=== PATIENT | female | born 1985 | race Caucasian/White ===

== ENCOUNTER 2016-11-29 17:47 | Inpatient (IN) | payer OTHER ==
[2016-11-29] MEDS ORDERED: Dinoprostone* 10 MG VAG.SUPP VAGINAL ONE (19:49)
[2016-11-30 06:46] LABS: Hematocrit 40 % (35-47); Mean Corpuscular HGB Conc 35 g/dl (31-36); Mean Corpuscular Hemoglobin 31 pg (27-31); Mean Corpuscular Volume 90 fL (80-97); Mean Platelet Volume 8 um3 (7.4-10.4); Red Blood Count 4.46 10^6/ul (4.0-5.4); Red Cell Distribution Width 13 % (10.5-15); White Blood Count 9.4 10^3/ul (3.5-10.8)
[2016-11-30] MEDS ORDERED: Oxytocin in LR* 20 UNITS/1,000 ML BAG IVPB SCH (10:00)
[2016-11-30] MEDS ORDERED: fentaNYL* 50 MCG/ML 2 ML VIAL (100 MCG VIAL) ONE ×3 (17:14→19:23)
[2016-11-30] MEDS ORDERED: OBEPIDURAL* 250 ML ONE (17:14)
[2016-11-30] MEDS ORDERED: HYDROmorphone* 1 MG/ML 1 ML SYR ONE ×2 (17:14→19:23)
[2016-11-30] MEDS ORDERED: Phenylephrine IV* 40 MCG/ML 10 ML SYRINGE IV PUSH PRN ×2 (18:29)
[2016-11-30] MEDS ORDERED: EPHEDrine (Pressors)* 50 MG/ML VIAL IV PUSH PRN ×2 (18:29)
[2016-11-30] MEDS ORDERED: Famotidine TAB* 20 MG PO PRN (18:29)
[2016-11-30] MEDS ORDERED: Sodium Citrate/Citric Acid* 15 ML UDC PO PRN (18:29)
[2016-11-30] MEDS ORDERED: OBEPIDURAL* 250 ML EPIDURAL SCH (19:00)
[2016-12-01] MEDS ORDERED: Dibucaine 1% 28.35 GM TUBE ONE (10:44)
[2016-12-01] MEDS ORDERED: Docusate CAP* 100 MG ONE (10:44)
[2016-12-01] MEDS ORDERED: Ibuprofen TAB* 600 MG ONE (10:44)
[2016-12-01] MEDS ORDERED: Witch Hazel PAD* JAR ONE ×2 (10:48→10:49)
[2016-12-01] MEDS ORDERED: Witch Hazel PAD* JAR TOPICAL PRN (10:58)
[2016-12-01] MEDS ORDERED: Acetaminophen TAB* 325 MG PO PRN (10:58)
[2016-12-01] MEDS ORDERED: Glycerin ADULT SUPP PR PRN (10:58)
[2016-12-01] MEDS ORDERED: Dibucaine 1% 28.35 GM TUBE PR PRN (10:58)
[2016-12-01] MEDS ORDERED: Simethicone CHEW TAB* 80 MG PO SCH (12:30)
[2016-12-01] MEDS: Docusate CAP* 100 MG PO SCH ×2 (14:59→21:22)
[2016-12-01] MEDS: Ibuprofen TAB* 600 MG PO PRN (18:34)
[2016-12-02] MEDS: Ibuprofen TAB* 600 MG PO PRN ×4 (00:34→20:09)
[2016-12-02 08:17] LABS: Hematocrit 30 % (35-47); Hemoglobin 10.1 g/dl (12.0-16.0); Mean Corpuscular HGB Conc 34 g/dl (31-36); Mean Corpuscular Hemoglobin 31 pg (27-31); Mean Corpuscular Volume 93 fL (80-97); Mean Platelet Volume 8 um3 (7.4-10.4); Red Blood Count 3.26 10^6/ul (4.0-5.4); Red Cell Distribution Width 13 % (10.5-15); White Blood Count 14.8 10^3/ul (3.5-10.8)
[2016-12-02] MEDS ORDERED: Ferrous Gluconate TAB* 324 MG TAB PO SCH (09:00)
[2016-12-02] MEDS: Docusate CAP* 100 MG PO SCH ×3 (09:57→20:09)
--- NOTE | 2016-12-02 10:37 | PTEDU ---
Patient Name: RACHANA HAAS RACHANA HAAS selected video: Never Ever Shake a Baby to view on 12/02/2016 at 10:36:10 AM from [id number]
--- NOTE | 2016-12-02 10:49 | PTEDU ---
Patient Name: RACHANA HAAS RACHANA HAAS selected video: Follow Me Mum: [facility] to view on 2016 at 10:47:[address] [id number]
[2016-12-03] MEDS: Ibuprofen TAB* 600 MG PO PRN ×2 (08:33→15:09)
[2016-12-03] MEDS: Docusate CAP* 100 MG PO SCH ×2 (08:33→15:09)
[2016-12-03 09:22] VITALS: BP 113/64
== END 2016-12-03 16:42 | disposition home or self-care (01) | DRG 775 ==
LOC: MCHOBOUT 17:47 → MCHOB 19:52
PROVIDERS: ADMIT Obstetrics & Gynecology; ATTEND Obstetrics & Gynecology
PROC: 10D07Z6 Extraction of Products of Conception, Vacuum, Via Natural or Artificial Opening (ICD-10-PCS; principal; 2016-12-01)
PROC: 0DQR0ZZ Repair Anal Sphincter, Open Approach (ICD-10-PCS; 2016-12-01)
PROC: 3E033VJ Introduction of Other Hormone into Peripheral Vein, Percutaneous Approach (ICD-10-PCS; 2016-12-01)
DX: O48.0 Post-term pregnancy (principal); E66.9 Obesity, unspecified; O70.20 Third degree perineal laceration during delivery, unspecified; Z3A.41 41 weeks gestation of pregnancy; O99.824 Streptococcus B carrier state complicating childbirth; O99.214 Obesity complicating childbirth; Z68.38 Body mass index [BMI] 38.0-38.9, adult; Z37.0 Single live birth
CPT/HCPCS: 36415; 59200; 85025; 86850; 86900; 86901; 88307; A9270-GY; J1170; J3010

== ENCOUNTER 2019-05-23 10:38 | Inpatient (IN) | payer OTHER ==
[2019-05-23] MEDS ORDERED: Buffered Lidocaine 1% SYRIN* 1 ML/SYRINGE INTRADERM ONE (12:15)
[2019-05-23] MEDS ORDERED: Lactated Ringers 1000 ML Bag* 1,000 ML IV ONE ×2 (12:15→22:39)
[2019-05-23] MEDS ORDERED: Nalbuphine* 10 MG/ML 1 ML VIAL IV ONE (12:15)
[2019-05-23] MEDS ORDERED: Promethazine INJ(RESTRICTED)* 25 MG/ML 1 ML VIAL IV ONE (12:15)
--- NOTE | 2019-05-23 12:30 | HP ---
General Information - Reason for Visit PROM at 38w2d at 0330 hours, clear fluid - General Information Maternal Age: 33 Grav: 2 Para: 1 SAB: 0 IEA: 0 Estimated Due Date: 06/04/19 Determined By: LMP Gestational Age in Weeks/Days: 38w2d Maternal Blood Type and Rh: A Positive - Results this Serology/RPR Result: Non-Reactive Rubella Result: Immune HBsAg Result: Negative HIV Result: Negative GBS Culture Result: Negative Past Medical History Delivery History: Hx Complicated Vaginal Delivery - Vacuum assisted, 3rd degree lacerations, 9#1oz baby Pertinent Past Medical History: See Records Pertinent Past Surgical History: See Records Pertinent Family History: Non-Contributory - Antepartal Records Antepartal Records: Reviewed, Complicated by: - morbid obesity, AMA Review of Systems Constitutional: Comfortable CV Complaint: No Respiratory: Shortness of Breath: No Gastrointestinal: No Nausea/Vomiting, Normal Bowel Movement Genitourinary: Leaking Fluid, No Dysuria, No Bleeding Musculoskeletal: No Complaint, No Epigastric Pain Neurological: No Headache, No Visual Changes Movement: Normal Exam Allergies/Adverse Reactions: Allergies lakshmi Allergy (Verified 05/23/19 11:20) Tingling Temp 97.6 Pulse 93 BP 112/72 RR 20 O2 Sat 99% Lab Values - Entire Visit: Laboratory Tests 05/23/19 11:11 Vag Amniotic Fld Detect Positive - Measurements Height: 5 ft 6.25 in Weight: 298 lb Weight in lbs: 298.697529 Body Mass Index (BMI): 47.7 Pre- Weight: 241 lb Weight Gained This : 57 lbs and 0 ozs - Exam Breast: Breast Exam Deferred CVA: No CVA Tenderness Extremities: No Edema Heart: Normal Rhythm/Heart Sounds HEENT: No Significant Findings Lungs: Clear Bilaterally Rectal: Rectal Exam Deferred Reflexes: DTR 2+ Thyroid: No Thyromegaly Other Exam Findings: trace edema in BL LE - Abdominal Exam Abdomen Exam: Non-Tender, Fundal Height Consistent with Dates - Ultrasound/Biophysical Profile Ultrasound Status: Bedside Exam Ultrasound Findings: Vertex Targeted Exam Findings Estimated Weight: 8#12oz Presenting Part: Vertex Membrane Status: Leaking Amniotic Fluid Evaluation: Positive ROM Plus Bleeding/Discharge: None - Cervical Exam deffered, pt with PROM, will begin augmentation with Pitocin EFM Findings - External Monitor Findings Baseline Heart Rate: 135 External Monitor Findings: Accelerations Present, No Pattern of Variable or Late Decelerations, Variability Moderate, Baseline Stable External Monitor Findings Comment: FHT reactive and reassuring Contractions: Irregular Contraction Frequency: irregular Assessment/Plan - Assessment 33 y/o at 38w2d with PROM at 0330hours, clear fluid. complicated by morbid obesity, AMA, hx of vacuum delivery of 9#1oz and 3rd degree laceration RH+/Rubella Immune GBS Negative 05/10 - Obstetrical Risk Factors Obstetrical Risk Factors: Obesity - Plan Plan: Induction Plan Comment: Defer cervical exam at this time; Vertex on USN; pt has been rupture ~9 hours, not sky regularly, pt is comfortable. Will begin augmentation with Pitocin. Will examine when clinically indicated. GBS negative, no indication for Abx ppx at this time, no s/sx of infection. - Date/Time of Admission Date of Admission: 05/23/19 Time of Admission: 12:00
[2019-05-23] MEDS ORDERED: Oxytocin in LR* 20 UNITS/1,000 ML BAG IVPB SCH (13:00)
[2019-05-23] MEDS ORDERED: Lactated Ringers 1000 ML Bag* 1,000 ML IV SCH ×2 (13:00→23:00)
[2019-05-23 13:05] LABS: ABS Eosinophils 0.1 10^3/ul (0-0.6); ABS Lymphocytes 1.7 10^3/ul (1.0-4.8); ABS Monocytes 0.6 10^3/ul (0-0.8); ABS Neutrophils 8.5 10^3/ul (1.5-7.7); Eosinophil % 0.5 %; Hematocrit 39 % (35-47); Hemoglobin 13.6 g/dL (12.0-16.0); Lymphocyte % 15.7 %; Mean Corpuscular HGB Conc 35 g/dL (31-36); Mean Corpuscular Hemoglobin 31 pg (27-31); Mean Corpuscular Volume 88 fL (80-97); Mean Platelet Volume 7.8 fL (7.4-10.4); Platelet Count 233 10^3/uL (150-450); Red Blood Count 4.45 10^6 /uL (3.70-4.87); Red Cell Distribution Width 14 % (10-15); White Blood Count 10.9 10^3/uL (3.5-10.8)
[2019-05-23 15:59] LABS: Urine Benzodiazepine Screen None Detected (None Detect); Urine Opiates Screen None Detected (None Detect)
--- NOTE | 2019-05-23 20:50 | PN ---
Progress Note - Progress Note Date of Service: 05/23/19 Note: 33 y/o at 38w2d here with PROM at 0330. IOL with Pitocin. AVSS, afebrile, hemodynamically stable. AAOX3 RRR, CTABL Abdomen soft, nttp FHT is 135bpm/moderate/+accels/no decels [place] is irregular Becoming more uncomfortable with contractions. Pitocin is at 18mU RH+/RI GBS negative Continue to titrate pitocin. Will examine when clinically indicated. OK for epidural when desired. Shane Nation, DO S[facility]
[2019-05-23] MEDS ORDERED: OBEPIDURAL* 250 ML EPIDURAL ONE (21:47)
[2019-05-23] MEDS ORDERED: Sodium Citrate/Citric Acid* 15 ML UDC PO PRN (22:39)
[2019-05-23] MEDS ORDERED: Phenylephrine 40 MCG/ML SYRINGE IV PUSH PRN ×2 (22:39)
[2019-05-23] MEDS ORDERED: OBEPIDURAL* 250 ML EPIDURAL SCH (23:00)
--- NOTE | 2019-05-24 00:26 | PN ---
Progress Note - Progress Note Date of Service: 05/24/19 Note: 33 y/o at 38w2d here with PROM at 0330. IOL with Pitocin. AVSS, afebrile, hemodynamically stable. FHT is 140bpm/moderate/+accels/intermittent variable, early and occasional late decels Q 2-3 minutes Cervical Exam: Fully dilated at 0 station Comfortable s/p epidural. Pitocin is at 20mU RH+/RI GBS negative Continue Pitocin Attempted pushing, but still without urge to push and head is at 0 station, will labor down x 1 hour or until pt feels urge to push, then re-assess. Peanut ball placed between legs. Pt is afebrile, fundus nttp. No s/sx of infection. Anticipate vaginal delivery. DO FRANCISCO Haider
[2019-05-24] MEDS ORDERED: Witch Hazel PAD* JAR ONE (03:06)
[2019-05-24] MEDS ORDERED: Dibucaine 1% 28.35 GM TUBE ONE (03:06)
[2019-05-24] MEDS ORDERED: Glycerin ADULT SUPP PR PRN (03:27)
[2019-05-24] MEDS ORDERED: Witch Hazel PAD* JAR TOPICAL PRN (03:27)
[2019-05-24] MEDS ORDERED: Acetaminophen TAB* 325 MG PO PRN (03:27)
[2019-05-24] MEDS ORDERED: Dibucaine 1% 28.35 GM TUBE PR PRN (03:27)
--- NOTE | 2019-05-24 03:27 | PROCNOTE ---
[facility] OB: Delivery Note - Delivery A Date of : 05/24/19 Time of : 02:45 [place] Sex: Female Score 1 Minute: 9 Score 5 Minutes: 9 Gestational Age in Weeks and Days at Delivery: 38 Weeks and 3 Days Delivery Method: Spontaneous Vaginal Labor: Spontaneous Amniotic Fluid: Clear Estimated Blood Loss: 300 Anesthesia/Analgesia: CEI for Labor Delivered By: Nam Nation JR - Nursery Level of Nursery: Regular/Bedside - Perineum Perineal Injury: 2nd Degree Perineal Injury Comment: repaired with 3-0 vicryl Perineal Repair: By Delivering Practioner - Events Delivery Events of Note: Pitocin During Labor - Additional Delivery Notes Additional Delivery Notes: 33 y/o at 38w3d with PROM at 0330 on 05/23. IOL with Pitocin. Delivered in FRANCES. Uncomplicated delivery. Small 2nd degree laceration repaired in the usual fashion with vicryl [place]. Mother and doing well at time of this note.
[2019-05-24] MEDS ORDERED: Lactated Ringers 1000 ML Bag* 1,000 ML IV SCH (04:00)
[2019-05-24] MEDS: Ibuprofen TAB* 600 MG PO SCH ×3 (05:02→21:49)
[2019-05-24] MEDS: Docusate CAP* 100 MG PO SCH ×3 (10:03→21:49)
[2019-05-25 05:46] LABS: ABS Eosinophils 0.2 10^3/ul (0-0.6); ABS Lymphocytes 2.5 10^3/ul (1.0-4.8); ABS Monocytes 0.7 10^3/ul (0-0.8); ABS Neutrophils 7.5 10^3/ul (1.5-7.7); Eosinophil % 2.2 %; Hematocrit 34 % (35-47); Hemoglobin 11.6 g/dL (12.0-16.0); Lymphocyte % 22.6 %; Mean Corpuscular HGB Conc 34 g/dL (31-36); Mean Corpuscular Hemoglobin 31 pg (27-31); Mean Corpuscular Volume 89 fL (80-97); Nucleated Red Blood Cells % 0.1; Platelet Count 188 10^3/uL (150-450); Red Blood Count 3.77 10^6 /uL (3.70-4.87); Red Cell Distribution Width 14 % (10-15); White Blood Count 10.9 10^3/uL (3.5-10.8)
[2019-05-25] MEDS ORDERED: Ferrous Gluconate TAB* 324 MG TAB PO SCH (09:00)
[2019-05-25] MEDS: Ibuprofen TAB* 600 MG PO SCH ×2 (09:30→15:24)
[2019-05-25] MEDS: Docusate CAP* 100 MG PO SCH ×3 (09:31→20:33)
[2019-05-26 07:17] VITALS: BP 110/58
[2019-05-26] MEDS: Simethicone TAB* 80 MG TAB.CHEW PO SCH (07:22)
[2019-05-26] MEDS: Ibuprofen TAB* 600 MG PO SCH ×2 (07:24→08:04)
[2019-05-26] MEDS: Docusate CAP* 100 MG PO SCH (08:04)
== END 2019-05-26 11:25 | disposition home or self-care (01) | DRG 807 ==
LOC: MCHOBOUT 10:38 → MCHOB 11:40
PROVIDERS: ADMIT Obstetrics & Gynecology; ATTEND Obstetrics & Gynecology
PROC: 10E0XZZ Delivery of Products of Conception, External Approach (ICD-10-PCS; principal; 2019-05-24)
PROC: 0KQM0ZZ Repair Perineum Muscle, Open Approach (ICD-10-PCS; 2019-05-24)
DX: O42.02 Full-term premature rupture of membranes, onset of labor within 24 hours of rupture (principal); Z37.0 Single live birth; O99.214 Obesity complicating childbirth; O70.1 Second degree perineal laceration during delivery; Z3A.38 38 weeks gestation of pregnancy
CPT/HCPCS: 36415; 76815; 80307; 84112; 85025; 86850; 86900; 86901; A9270-GY